=== PATIENT | female | born 1975 | race Caucasian/White ===

== ENCOUNTER 2020-06-23 07:36 | Emergency (ER) | payer OTHER ==
[~2020-06-23] VITALS: Ht 144.8 cm; Wt 69.4 kg
[2020-06-23 07:42] VITALS: Ht 144.8 cm; Wt 69.4 kg
[2020-06-23 09:39] VITALS: BP 142/74
== END 2020-06-23 08:50 | disposition home or self-care (01) ==
LOC: ED 07:36
DX: S05.02XA Injury of conjunctiva and corneal abrasion without foreign body, left eye, initial encounter (principal); I10 Essential (primary) hypertension; X58.XXXA Exposure to other specified factors, initial encounter; Y93.89 Activity, other specified; Y92.89 Other specified places as the place of occurrence of the external cause; Y99.8 Other external cause status

== ENCOUNTER 2020-11-13 11:41 | Emergency (ER) | payer OTHER ==
[~2020-11-13] VITALS: Ht 144.8 cm; Wt 69.4 kg
[2020-11-13 12:01] VITALS: Ht 144.8 cm; Wt 69.4 kg
[2020-11-13 15:24] VITALS: BP 130/73
== END 2020-11-13 15:24 | disposition home or self-care (01) ==
LOC: ED 11:41
DX: F41.9 Anxiety disorder, unspecified (principal); I10 Essential (primary) hypertension; F32.9 Major depressive disorder, single episode, unspecified